=== PATIENT | female | born 1935 | race Caucasian/White ===

== ENCOUNTER 2017-09-16 14:45 | Emergency (ER) | payer MEDICARE, OTHER ==
[~2017-09-16 14:45] MED LIST: ALPR0.25 PO; CART180C4 PO; COQ1100C PO; COUM5TAB PO; DIGO0.25 PO; HYDR25TA35 PO; METO100T9 PO; MEVA40TA6 PO; ROBA500T PO; SPIR25TA PO; WARF2.5T40 PO
[2017-09-16 14:47] VITALS: BP 140/81; PULSE 82; RESP 18; TEMP 97.5; O2SAT 97
[2017-09-16] MEDS ORDERED: KETOROLAC TROMETHAMINE 30 MG/ML (IVP) VIAL IV PUSH ONE (15:30)
[2017-09-16] MEDS ORDERED: ORPHENADRINE INJ 60 MG/2 ML AMP IV ONE (15:30)
[2017-09-16] MEDS ORDERED: SODIUM CHLORIDE 0.9% FLUSH 10 ML FLUSH IVF PRN (15:30)
[2017-09-16 15:41] VITALS: O2SAT 99
[2017-09-16 15:53] LABS: AUTOMATED NEUTROPHIL # 13.2 TH/MM3 (1.8-7.7); BASOPHIL % 0.1 % (0.0-2.0); EOSINOPHIL % 0.2 % (0.0-4.0); HEMOGLOBIN 15.4 GM/DL (11.6-15.3); LYMPHOCYTE # 2.6 TH/MM3 (1.0-4.8); MEAN CELL VOLUME 84.8 FL (80.0-100.0); MEAN CORPUSCULAR HEMOGLOBIN 28.4 PG (27.0-34.0); MEAN CORPUSCULAR HGB CONC 33.5 % (32.0-36.0); MEAN PLATELET VOLUME 9.4 FL (7.0-11.0); MONO % 8.9 % (0.0-8.0); MONOCYTE # 1.6 TH/MM3 (0-0.9); NEUT % 75.8 % (16.0-70.0); PLATELET COUNT 301 TH/MM3 (150-450); RED BLOOD COUNT 5.43 MIL/MM3 (4.00-5.30); RED CELL DISTRIBUTION WIDTH 13.6 % (11.6-17.2); WHITE BLOOD COUNT 17.5 TH/MM3 (4.0-11.0)
--- NOTE | 2017-09-16 16:13 | PD ---
HPI Chief Complaint: General Weakness Time Seen by Provider: 15:01 Travel History International Travel<30 days: No Contact w/Intl Traveler<30days: No Traveled to known affect area: No History of Present Illness HPI Patient is an 82-year-old female presenting to the emergency department for evaluation of neck, shoulder and arm pain. Patient states this is been ongoing for 1 week. She denies any injury or trauma. Pain radiates down the back of her shoulder blade to her arm. Daughter has been applying [place] balm with no relief, she is also taken Tylenol, hydrocodone and when that didn't help she called her primary doctor who told her to take tramadol which she has been taking for the last 24-36 hours with some relief. Additionally patient reports nausea, fatigue, unsteady gait, decreased appetite and weakness for the last 2- 3 days. They deny any fevers, chills, vomiting, diarrhea, abdominal pain, chest pain, shortness of breath. PFSH Past Medical History Hx Anticoagulant Therapy: Yes (COUMADIN) Arthritis: Yes Asthma: No Atrial Fibrillation: Yes Autoimmune Disease: No Blood Disorders: No Anxiety: No Depression: No Heart Rhythm Problems: No Cancer: No Cardiovascular Problems: Yes (AFIB) High Cholesterol: No Chemotherapy: No Chest Pain: Yes Congestive Heart Failure: No COPD: No Cerebrovascular Accident: No Diabetes: No Diminished Hearing: No Endocrine: No Gastrointestinal Disorders: Yes GERD: No Glaucoma: No Genitourinary: Yes Headaches: No Hepatitis: No Hiatal Hernia: No Hypertension: Yes Immune Disorder: No Implanted Vascular Access Dvce: No Kidney Stones: No Musculoskeletal: Yes Neurologic: Yes Psychiatric: No Reproductive: No Respiratory: Yes Immunizations Current: Yes Migraines: No Myocardial Infarction: No Radiation Therapy: No Renal Failure: No Seizures: No Sickle Cell Disease: No Sleep Apnea: No Thyroid Disease: No Ulcer: No Menopausal: Yes Tubal Ligation: Yes Past Surgical History Abdominal Surgery: No AICD: No Appendectomy: No Arteriovenous Shunt: No Cardiac Surgery: Yes (CARDIAC ABLATION) Cholecystectomy: No Ear Surgery: No Endocrine Surgery: No Eye Surgery: Yes (CATARACTS REMOVED) Genitourinary Surgery: Yes (BLADDER PROLAPS) Gynecologic Surgery: Yes Hysterectomy: Yes Insulin Pump: No Joint Replacement: No Neurologic Surgery: No Oral Surgery: No Pacemaker: No Thoracic Surgery: No Other Surgery: Yes Social History Alcohol Use: No Tobacco Use: No Substance Use: No Allergies-Medications (Allergen,Severity, Reaction): Coded Allergies: codeine (Unverified Allergy, Severe, FELT LOUSY, 09/16/17) doxycycline (Unverified Allergy, Severe, VAGINAL INFECTION, 09/16/17) lactose (Unverified Allergy, Severe, GAS/FLATUS, 09/16/17) meperidine (Unverified Allergy, Severe, Lethargy, 09/16/17) minocycline (Unverified Allergy, Severe, VAGINAL INFECTION, 09/16/17) penicillin G (Unverified Allergy, Severe, UNKNOWN, 09/16/17) tigecycline (Unverified Allergy, Severe, VAGINAL INFECTION, 09/16/17) promethazine (Unverified Allergy, Mild, HALLUCINATIONS/TONGUE SWELLS, ) Reported Meds & Prescriptions Reported Meds & Active Scripts Active Lidoderm (Lidocaine) 5 % Adh..patch 1 Patch TOPICAL DAILY PRN Flexeril (Cyclobenzaprine HCl) 5 Mg Tab 5 Mg PO TID PRN Cipro (Ciprofloxacin HCl) 250 Mg Tab 250 Mg PO BID 3 Days Reported Asi19-Zoimmhv E (Coenzyme X06-Etseqqv E) 200 MG-20 Unit Cap Tramadol (Tramadol HCl) 50 Mg Tab 50 Mg PO Q6H PRN Pantoprazole (Pantoprazole Sodium) 40 Mg Tab 40 Mg PO TIDAC Duloxetine DR (Duloxetine HCl) 30 Mg Capdr 30 Mg PO DAILY Alprazolam 0.25 Mg Tab 0.25 Mg PO HS PRN Lovastatin 10 Mg Tab 10 Mg PO DAILY Digoxin 0.25 Mg Tab 0.25 Mg PO DAILY Warfarin 2.5 Mg Tab 2.5 Mg PO DAILY Warfarin 5 Mg Tab 5 Mg PO FRIDAY Spironolactone 25 Mg Tab 25 Mg PO DAILY Hydralazine (Hydralazine HCl) 100 Mg Tab 25 Mg PO BID Take with meals Metoprolol Succinate ER 24 HR (Metoprolol Succinate) 50 Mg Tab 50 Mg PO BID Review of Systems Except as stated in HPI: all other systems reviewed are Neg General / Constitutional: Positive: Other (FATIGUE), No: Fever, Chills HENT: No: Headaches, Lightheadedness Cardiovascular: No: Chest Pain or Discomfort Respiratory: No: Shortness of Breath Gastrointestinal: Positive: Nausea, Loss of Appetite, No: Vomiting, Diarrhea, Abdominal Pain Genitourinary: No: Dysuria Musculoskeletal: Positive: Myalgias, Cramping, Pain Neurologic: No: Weakness, Dizziness, Syncope, Focal Abnormalities Physical Exam Narrative GENERAL: Well-developed, well-nourished, alert elderly female. Resting comfortably in no acute distress. SKIN: Warm and dry. HEAD: Atraumatic. Normocephalic. EYES: Pupils equal and round. No scleral icterus. No injection or drainage. ENT: No nasal bleeding or discharge. Mucous membranes pink and moist. NECK: Trachea midline. No JVD. CARDIOVASCULAR: Irregularly irregular RESPIRATORY: No accessory muscle use. Clear to auscultation. Breath sounds equal bilaterally. GASTROINTESTINAL: Abdomen soft, non-tender, nondistended. Hepatic and splenic margins not palpable. + Bowel sounds, no rebound, no guarding MUSCULOSKELETAL: Extremities without clubbing, cyanosis, or edema. No obvious deformities. Tenderness to palpation in left neck musculature, no spinal tenderness or step-off noted. Full range of motion in all 4 extremities. NEUROLOGICAL: Awake and alert. No obvious cranial nerve deficits. Motor grossly within normal limits. Five out of 5 muscle strength in the arms and legs. Normal speech. PSYCHIATRIC: Appropriate mood and affect; insight and judgment normal. Data Data Last Documented VS Vital Signs Date Time Temp Pulse Resp B/P (MAP) Pulse Ox O2 Delivery O2 Flow Rate FiO2 09/16/17 15:41 99 Room Air 09/16/17 14:47 97.5 82 18 Orders Orders Electrocardiogram (09/16/17 15:29) Complete Blood Count With Diff (09/16/17 15:29) Comprehensive Metabolic Panel (09/16/17 15:29) Magnesium (Mg) (09/16/17 15:29) Ckmb (Isoenzyme) Profile (09/16/17 15:29) Troponin I (09/16/17 15:29) Urinalysis - C+S If Indicated (09/16/17 15:29) Ecg Monitoring (09/16/17 15:29) Iv Access Insert/Monitor (09/16/17 15:29) Oximetry (09/16/17 15:29) Sodium Chloride 0.9% Flush (Ns Flush) (09/16/17 15:30) Creatine Kinase (Cpk) (09/16/17 15:29) Orphenadrine Inj (Norflex Inj) (09/16/17 15:30) Ketorolac Inj (Toradol Inj) (09/16/17 15:30) Chest, Single Ap (09/16/17 ) Sodium Chlor 0.9% 1000 Ml Inj (Ns 1000 M (09/16/17 16:30) Urine Culture (09/16/17 17:00) Ciprofloxacin 400 Mg Premix (Cipro 400 M (09/16/17 18:15) Ed Discharge Order (09/16/17 18:27) Labs Laboratory Tests Test 09/16/17 15:35 09/16/17 17:00 White Blood Count 17.5 TH/MM3 Red Blood Count 5.43 MIL/MM3 Hemoglobin 15.4 GM/DL Hematocrit 46.0 % Mean Corpuscular Volume 84.8 FL Mean Corpuscular Hemoglobin 28.4 PG Mean Corpuscular Hemoglobin Concent 33.5 % Red Cell Distribution Width 13.6 % Platelet Count 301 TH/MM3 Mean Platelet Volume 9.4 FL Neutrophils (%) (Auto) 75.8 % Lymphocytes (%) (Auto) 15.0 % Monocytes (%) (Auto) 8.9 % Eosinophils (%) (Auto) 0.2 % Basophils (%) (Auto) 0.1 % Neutrophils # (Auto) 13.2 TH/MM3 Lymphocytes # (Auto) 2.6 TH/MM3 Monocytes # (Auto) 1.6 TH/MM3 Eosinophils # (Auto) 0.0 TH/MM3 Basophils # (Auto) 0.0 TH/MM3 CBC Comment DIFF FINAL Differential Comment Blood Urea Nitrogen 31 MG/DL Creatinine 1.09 MG/DL Random Glucose 114 MG/DL Total Protein 7.8 GM/DL Albumin 4.1 GM/DL Calcium Level 9.5 MG/DL Magnesium Level 2.0 MG/DL Alkaline Phosphatase 60 U/L Aspartate Amino Transf (AST/SGOT) 18 U/L Alanine Aminotransferase (ALT/SGPT) 24 U/L Total Bilirubin 0.5 MG/DL Sodium Level 131 MEQ/L Potassium Level 4.9 MEQ/L Chloride Level 93 MEQ/L Carbon Dioxide Level 27.0 MEQ/L Anion Gap 11 MEQ/L Estimat Glomerular Filtration Rate 48 ML/MIN Total Creatine Kinase 32 U/L Troponin I LESS THAN 0.02 NG/ML Urine Color YELLOW Urine Turbidity HAZY Urine pH 5.5 Urine Specific [place] 1.017 Urine Protein 30 mg/dL Urine Glucose (UA) NEG mg/dL Urine Ketones NEG mg/dL Urine Occult Blood TRACE Urine Nitrite NEG Urine Bilirubin NEG Urine Urobilinogen 2.0 MG/DL Urine Leukocyte Esterase LARGE Urine RBC 40 /hpf Urine WBC 107 /hpf Urine WBC Clumps RARE Urine Squamous Epithelial Cells <1 /hpf Urine Bacteria MANY /hpf Urine Hyaline Casts 1 /lpf Urine Mucus FEW /lpf Microscopic Urinalysis Comment CULTURE INDICATED MDM Medical Decision Making Medical Screen Exam Complete: Yes Emergency Medical Condition: Yes Interpretation(s) Vital Signs Date Time Temp Pulse Resp B/P (MAP) Pulse Ox O2 Delivery O2 Flow Rate FiO2 09/16/17 15:41 99 Room Air 09/16/17 14:47 97.5 82 18 140/81 (100) 97 Differential Diagnosis Muscle strain versus muscle spasm versus tendinitis versus gastritis versus medication side effect versus other Narrative Course Patient presented with multiple complaints including left neck and shoulder pain , nausea with no vomiting, fatigue and weakness. It appears symptoms could be related to medication side effects, additionally her pain is causing her to not sleep well at night which has been making her feel fatigued. She is also taking narcotic pain medications which could be decreasing her appetite which will increase her weakness. Patient's vital signs are stable, initial EKG shows atrial fibrillation with a rate of 72. Patient has a known history of this. Labs and imaging were ordered and pending. CBC with white count of 17.5 with left shift Chemistry the BUN/creatinine 31/1.09, sodium 131. Patient was given 1 L of IV fluids. Urinalysis is consistent with a urinary tract infection. Cipro 400 mg IV 1 dose ordered. Patient was reassessed, she reports resolution of her pain. Patient appears well. Plan of care discussed with my attending physician. Discussed findings with patient and daughter, she'll be discharged home with a prescription for Cipro as well as a low dose of a muscle relaxer. She was encouraged to take acetaminophen as needed and as directed for pain. She was encouraged to follow- up with her primary doctor return to emergency department for any new or worsening symptoms. Additionally she was encouraged to increase fluid intake. They verbalized understanding of instructions. Patient is stable for discharge. Diagnosis Primary Impression: Pyelonephritis Additional Impressions: Muscle strain Muscle spasm Referrals: John Fernandez MD 2 days TO HAVE INR (COUMADIN LEVEL) CHECKED Patient Instructions: General Instructions, Muscle Spasm (ED), Muscle Strain ( GEN), Urinary Tract Infection in Women (DC) Additional Instructions: Follow-up with her primary doctor in 2 days to have your INR checked Complete full course of antibiotics as prescribed Increase fluid intake Take medications as directed Return to emergency department for any new or worsening symptoms Med/Other Pt SpecificInfo: Prescription(s) given Scripts Lidocaine (Lidoderm) 5 % Adh..patch 1 PATCH TOPICAL DAILY Y for PAIN SCALE 1 TO 10, #10 Prov: Caridad Holland 09/16/17 Cyclobenzaprine (Flexeril) 5 Mg Tab 5 MG PO TID Y for MUSCLE SPASM, #21 TAB 0 Refills Prov: Caridad Holland 09/16/17 Ciprofloxacin (Cipro) 250 Mg Tab 250 MG PO BID for Infection for 3 Days, #6 TAB 0 Refills Prov: Caridad Holland 09/16/17 Disposition: 01 DISCHARGE HOME Condition: Stable Caridad Holland Sep 16, 2017 16:13
[2017-09-16 16:26] LABS: ALBUMIN 4.1 GM/DL (3.4-5.0); AST (GOT) 18 U/L (15-37); BLOOD UREA NITROGEN 31 MG/DL (7-18); CALCIUM 9.5 MG/DL (8.5-10.1); CHLORIDE 93 MEQ/L (98-107); CREATININE 1.09 MG/DL (0.50-1.00); GLOMERULAR FILTRATION RATE 48 ML/MIN (>89); GLUCOSE,RANDOM 114 MG/DL (74-106); SODIUM (NA) 131 MEQ/L (136-145)
[2017-09-16 16:27] LABS: ALT (GPT) 24 U/L (10-53)
[2017-09-16 16:30] LABS: ALKALINE PHOSPHATASE 60 U/L (45-117); TOTAL BILIRUBIN ADULT 0.5 MG/DL (0.2-1.0); TOTAL PROTEIN 7.8 GM/DL (6.4-8.2); TROPONIN I LESS THAN 0.02 NG/ML (0.02-0.05)
[2017-09-16] MEDS ORDERED: PANT40TA3 PO (16:30)
[2017-09-16] MEDS ORDERED: HYDR-3801 PO (16:30)
[2017-09-16] MEDS ORDERED: WARF-23 PO (16:30)
[2017-09-16] MEDS ORDERED: COEN1CAP17 (16:30)
[2017-09-16] MEDS ORDERED: TRAM50TA PO (16:30)
[2017-09-16] MEDS ORDERED: WARF-18 PO (16:30)
[2017-09-16] MEDS ORDERED: DIGO0.25 PO (16:30)
[2017-09-16] MEDS ORDERED: ALPR0.25 PO (16:30)
[2017-09-16] MEDS ORDERED: DULO1CAP2 PO (16:30)
[2017-09-16] MEDS ORDERED: METO1TAB9 PO (16:30)
[2017-09-16] MEDS ORDERED: LOVA10TA PO (16:30)
[2017-09-16] MEDS ORDERED: SODIUM CHLOR 0.9% 1000 ML INJ 1,000 ML IV ONE (16:30)
[2017-09-16] MEDS ORDERED: SPIR25TA PO (16:30)
--- NOTE | 2017-09-16 16:33 | RADRPT ---
EXAM DATE/TIME: 09/16/2017 16:27 [facility] COMPARISON: RIBS RIGHT(W PA CXR MIN 3VWS), May 29, 2016, 16:55. INDICATIONS : Chest and arm pain, general weakness. MEDICAL HISTORY : A-fib. SURGICAL HISTORY : None. ENCOUNTER: Initial ACUITY: 3 days PAIN SCORE: 2/10 LOCATION: Bilateral chest FINDINGS: A single view of the chest demonstrates the lungs to be symmetrically aerated without new focal pleur al or opacities. The cardiomediastinal contours are unremarkable. Osseous structures are intact. CONCLUSION: 1. No acute abnormality or significant interval change. Shukri Brown MD on September 16, 2017 at 16:30 Board Certified Radiologist. This report was verified electronically.
[2017-09-16 17:42] LABS: BACTERIA, URINE MANY /hpf; BILIRUBIN, URINE NEG (NEG); BLOOD, URINE TRACE (NEG); GLUCOSE,URINE NEG (NEG); HYALINE CAST, URINE 1 /lpf (RARE); KETONE, URINE NEG (NEG); MUCUS URINE FEW /lpf (OCC); NITRITE,URINE NEG (NEG); PH, URINE 5.5 (5.0-8.5); SQUAMOUS EPITHELIAL CELL URINE <1 /hpf (0-5); URINE COLOR YELLOW (YELLW/STRAW); URINE LEUKOCYTE ESTERASE LARGE (NEG); WHITE BLOOD CELL CLUMPS RARE
[2017-09-16] MEDS ORDERED: CIPROFLOXACIN 400 MG PREMIX 200 ML IV ONE (18:15)
[2017-09-16] MEDS ORDERED: CYCL5TAB PO (18:27)
[2017-09-16] MEDS ORDERED: CIPR250T52 PO (18:27)
[2017-09-16] MEDS ORDERED: LIDO1ADH4 TOPICAL (18:27)
[2017-09-16 18:32] VITALS: BP 164/74; PULSE 69; RESP 16; O2SAT 98
--- NOTE | 2017-09-16 20:55 | EKG ---
Date Performed: 09/16/2017 Time Performed: 15:30:50 PTAGE: 82 years EKG: ATRIAL FIBRILLATION ABNORMAL RHYTHM ECG No significant change from prior electrocardiogram. PREVIOUS TRACING : 05/29/2016 16.28 DOCTOR: Craig Novak Interpretating Date/Time 09/16/2017 20:53:30
== END 2017-09-16 19:50 | disposition home or self-care (01) ==
LOC: NEPE 14:45
DX: N12 Tubulo-interstitial nephritis, not specified as acute or chronic (principal); B95.2 Enterococcus as the cause of diseases classified elsewhere; M62.838 Other muscle spasm; I48.91 Unspecified atrial fibrillation; I10 Essential (primary) hypertension; Z79.01 Long term (current) use of anticoagulants
CPT/HCPCS: 71010; 80053; 81001; 82550; 83735; 84484; 85025; 87077; 87086; 87186; 93005; 96361; 96374; 96375; 99285; J0744; J1885; J2360; J7030

== ENCOUNTER 2017-10-23 09:34 | Inpatient (IN) | payer MEDICARE, OTHER ==
[2017-10-23] VITALS (10 sets, daily range): BP systolic 118–157; BP diastolic 59–93; PULSE 85–130; RESP 16–22; TEMP 98.1–98.5; O2SAT 95–99
[~2017-10-23] VITALS: Ht 165.1 cm; Wt 61.5 kg
[~2017-10-23 09:34] MED LIST changes: -CART180C4 PO; +CIPR250T52 PO; +COEN1CAP17; -COQ1100C PO; -COUM5TAB PO; +CYCL5TAB PO; +DULO1CAP2 PO; +HYDR-3801 PO; -HYDR25TA35 PO; +LIDO1ADH4 TOPICAL; +LOVA10TA PO; -METO100T9 PO; +METO1TAB9 PO; -MEVA40TA6 PO; +PANT40TA3 PO; -ROBA500T PO; +TRAM50TA PO; +WARF-18 PO; +WARF-23 PO; -WARF2.5T40 PO
[2017-10-23] MEDS ORDERED: SODIUM CHLORIDE 0.9% FLUSH 10 ML FLUSH IVF PRN (10:15)
--- NOTE | 2017-10-23 10:25 | PD ---
HPI Chief Complaint: Syncope/Near-Syncope Time Seen by Provider: 09:56 Travel History International Travel<30 days: No Contact w/Intl Traveler<30days: No Traveled to known affect area: No History of Present Illness HPI 82-year-old female, with history of atrial fibrillation, presents to the emergency department with complaint of a few syncopal episodes this morning. Takes Coumadin. At 3 AM she woke up yelling out to her daughter when she was on the floor. Reports waking up to get Tylenol because she had a headache. Denies chest pain, shortness of breath. Reports feeling heart palpitations on and off. Radiographer Angiogram discontinued Digoxin two weeks ago. Denies fever, vomiting. Reports having sneezing, coughing, nasal congestion that started yesterday. She did take some NyQuil last night for these symptoms. Does not know if she hit her head. Complaining of left shoulder pain, left lateral neck pain, right hip pain, right knee pain. Denies back pain. Was able to ambulate with assistance after the fall. Radiographer Angiogram is Dr. Hicks. PCP Dr. Fernandez. Allergies as listed on the chart. History of atrial fibrillation, hypertension , hypercholesterolemia. Does not taken any medications or tried any treatments to alleviate her symptoms. Has no other medical complaints. No other modifying factors or associated signs and symptoms. PFSH Past Medical History Hx Anticoagulant Therapy: Yes (COUMADIN) Arthritis: Yes Asthma: No Atrial Fibrillation: Yes Autoimmune Disease: No Blood Disorders: No Anxiety: No Depression: No Heart Rhythm Problems: No Cancer: No Cardiovascular Problems: Yes High Cholesterol: No Chemotherapy: No Chest Pain: Yes Congestive Heart Failure: No COPD: No Cerebrovascular Accident: No Diabetes: No Diminished Hearing: No Endocrine: No Gastrointestinal Disorders: Yes GERD: Yes Glaucoma: No Genitourinary: Yes Headaches: No Hepatitis: No Hiatal Hernia: No Hypertension: Yes Immune Disorder: No Implanted Vascular Access Dvce: No Kidney Stones: No Musculoskeletal: Yes Neurologic: Yes Psychiatric: No Reproductive: No Respiratory: Yes Immunizations Current: Yes Migraines: No Myocardial Infarction: No Radiation Therapy: No Renal Failure: No Seizures: No Sickle Cell Disease: No Sleep Apnea: No Thyroid Disease: No Ulcer: No Influenza Vaccination: Yes ?: Not Menopausal: Yes Tubal Ligation: Yes Past Surgical History Abdominal Surgery: No AICD: No Appendectomy: No Arteriovenous Shunt: No Cardiac Surgery: Yes (CARDIAC ABLATION) Cholecystectomy: No Ear Surgery: No Endocrine Surgery: No Eye Surgery: Yes (CATARACTS REMOVED) Genitourinary Surgery: Yes (BLADDER PROLAPSe) Gynecologic Surgery: Yes Hysterectomy: Yes Insulin Pump: No Joint Replacement: No Neurologic Surgery: No Oral Surgery: No Pacemaker: No Thoracic Surgery: No Other Surgery: Yes Social History Alcohol Use: No Tobacco Use: No Substance Use: No Allergies-Medications (Allergen,Severity, Reaction): Coded Allergies: codeine (Unverified Allergy, Severe, FELT LOUSY, 10/23/17) doxycycline (Unverified Allergy, Severe, VAGINAL INFECTION, 10/23/17) lactose (Unverified Allergy, Severe, GAS/FLATUS, 10/23/17) meperidine (Unverified Allergy, Severe, Lethargy, 10/23/17) minocycline (Unverified Allergy, Severe, VAGINAL INFECTION, 10/23/17) penicillin G (Unverified Allergy, Severe, UNKNOWN, 10/23/17) tigecycline (Unverified Allergy, Severe, VAGINAL INFECTION, 10/23/17) promethazine (Unverified Allergy, Mild, HALLUCINATIONS/TONGUE SWELLS, 10/23) Reported Meds & Prescriptions Reported Meds & Active Scripts Active Reported [id number] E (Coenzyme F68-Tcrkhvy E) 200 MG-[address] (Duloxetine HCl) 30 Mg Capdr 30 Mg PO DAILY Alprazolam 0.25 Mg Tab 0.25 Mg PO HS PRN Lovastatin 10 Mg Tab 10 Mg PO DAILY Warfarin 2.5 Mg Tab 2.5 Mg PO Warfarin 5 Mg Tab 5 Mg PO FRIDAY AND FRIDAY Spironolactone 25 Mg Tab 25 Mg PO DAILY Hydralazine (Hydralazine HCl) 100 Mg Tab 25 Mg PO BID Take with meals Metoprolol Succinate ER 24 HR (Metoprolol Succinate) 50 Mg Tab 50 Mg PO BID Review of Systems Except as stated in HPI: all other systems reviewed are Neg Physical Exam Narrative GENERAL: Well-nourished, well-developed elderly female patient, in no acute distress SKIN: Warm and dry. HEAD: Atraumatic. Normocephalic. No facial or scalp abrasions or lacerations noted. No facial droop noted. Tongue is midline. EYES: Pupils equal and round at 3 mm with brisk reaction. No scleral icterus. No injection or drainage. No raccoon eyes. No orbital tenderness on palpation bilaterally. ENT: Mucosa pink and moist. No erythema or exudates. No uvular edema. No uvular , palatal, or tonsillar deviation. Airway patent. Nares without nasal blood, purulent drainage or septal hematoma. No rhinorrhea. EARS: Bilateral pinnae and external canals appear within normal limits. Bilateral tympanic membranes without erythema, dullness, hemotympanum or perforation. No otorrhea. No meade signs. NECK: Moving freely. Trachea midline. No lymphadenopathy. Active rotation of the neck greater than 45 left and right. No midline point tenderness on palpation of the cervical spine. Reproducible tenderness to the left lateral musculature of the neck. No obvious deformities. CHEST: No retractions or use of accessory muscles. CARDIOVASCULAR: Irregular rate and rhythm. No murmur appreciated. RESPIRATORY: No accessory muscle use. Clear to auscultation. Breath sounds equal bilaterally. GASTROINTESTINAL: Abdomen soft, non-tender, nondistended. Hepatic and splenic margins not palpable. Bowel sounds are active 4 quadrants. MUSCULOSKELETAL: Left shoulder with full range of motion without erythema, edema , ecchymosis; joint stable. Right knee with tenderness on palpation to the patellar aspect; without erythema, edema, ecchymosis; full range of motion in flexion and 90. Right hip with tenderness on abduction and palpation; no leg length discrepancy. No obvious deformities. No clubbing. No cyanosis. No edema. BACK: No Point tenderness on palpation of the lumbar or thoracic spine. No obvious deformities. Patient sitting up in bed at 90. NEUROLOGICAL: Awake and alert. Oriented 3. No obvious cranial nerve deficits. Motor grossly within normal limits. Normal speech. No midline drift. No ataxia. No upper or lower extremity drift. Moves all extremities. 5/5 strength to all extremities. Sensory intact. PSYCHIATRIC: Appropriate mood and affect; insight and judgment normal. Data Data Last Documented VS Vital Signs Date Time Temp Pulse Resp B/P (MAP) Pulse Ox O2 Delivery O2 Flow Rate FiO2 10/23/17 12:00 110 18 157/80 (105) 99 Room Air 10/23/17 09:35 98.1 Orders Orders Electrocardiogram (10/23/17 10:09) Basic Metabolic Panel (Bmp) (10/23/17 10:09) Complete Blood Count With Diff (10/23/17 10:09) Magnesium (Mg) (10/23/17 10:09) Prothrombin Time / Inr (Pt) (10/23/17 10:09) Act Partial Throm Time (Ptt) (10/23/17 10:09) Troponin I (10/23/17 10:09) Chest, Single Ap (10/23/17 10:09) Ecg Monitoring (10/23/17 10:09) Iv Access Insert/Monitor (10/23/17 10:09) Oximetry (10/23/17 10:09) Sodium Chloride 0.9% Flush (Ns Flush) (10/23/17 10:15) Ct Brain W/O Iv Contrast(Rout) (10/23/17 ) Ct Cerv Spine W/O Contrast (10/23/17 ) Knee, Complete (4vws) (10/23/17 10:09) Hip, Uni(Ap&Lat) W Ap Pelvis (10/23/17 10:09) Influenzae A/B Antigen (10/23/17 10:09) Metoprolol Succinate Er (Toprol Xl) (10/23/17 10:45) Urinalysis - C+S If Indicated (10/23/17 11:50) Diet Heart Healthy (10/23/17 Lunch) Methocarbamol (Robaxin) (10/23/17 12:15) Urine Culture (10/23/17 11:40) Labs Laboratory Tests Test 10/23/17 10:15 10/23/17 11:40 White Blood Count 11.8 TH/MM3 Red Blood Count 5.26 MIL/MM3 Hemoglobin 15.3 GM/DL Hematocrit 45.6 % Mean Corpuscular Volume 86.7 FL Mean Corpuscular Hemoglobin 29.2 PG Mean Corpuscular Hemoglobin Concent 33.6 % Red Cell Distribution Width 14.8 % Platelet Count 193 TH/MM3 Mean Platelet Volume 9.6 FL Neutrophils (%) (Auto) 73.3 % Lymphocytes (%) (Auto) 12.4 % Monocytes (%) (Auto) 13.8 % Eosinophils (%) (Auto) 0.2 % Basophils (%) (Auto) 0.3 % Neutrophils # (Auto) 8.6 TH/MM3 Lymphocytes # (Auto) 1.5 TH/MM3 Monocytes # (Auto) 1.6 TH/MM3 Eosinophils # (Auto) 0.0 TH/MM3 Basophils # (Auto) 0.0 TH/MM3 CBC Comment DIFF FINAL Differential Comment Prothrombin Time 19.1 SEC Prothromb Time International Ratio 1.9 RATIO Activated Partial Thromboplast Time 28.8 SEC Blood Urea Nitrogen 24 MG/DL Creatinine 0.91 MG/DL Random Glucose 93 MG/DL Calcium Level 9.0 MG/DL Magnesium Level 2.2 MG/DL Sodium Level 133 MEQ/L Potassium Level 4.3 MEQ/L Chloride Level 100 MEQ/L Carbon Dioxide Level 28.0 MEQ/L Anion Gap 5 MEQ/L Estimat Glomerular Filtration Rate 59 ML/MIN Troponin I LESS THAN 0.02 NG/ML Urine Color YELLOW Urine Turbidity HAZY Urine pH 7.0 Urine Specific [place] 1.011 Urine Protein NEG mg/dL Urine Glucose (UA) NEG mg/dL Urine Ketones NEG mg/dL Urine Occult Blood NEG Urine Nitrite NEG Urine Bilirubin NEG Urine Urobilinogen LESS THAN 2.0 MG/DL Urine Leukocyte Esterase LARGE Urine RBC 1 /hpf Urine WBC 56 /hpf Urine Squamous Epithelial Cells 12 /hpf Urine Bacteria RARE /hpf Urine Mucus FEW /lpf Microscopic Urinalysis Comment CULTURE INDICATED MDM Medical Decision Making Medical Screen Exam Complete: Yes Emergency Medical Condition: Yes Medical Record Reviewed: Yes Differential Diagnosis Syncope, arrhythmia, electrolyte imbalance Narrative Course 82-year-old female with history of atrial fibrillation and is on warfarin presents with multiple episodes of syncope this morning. She was taken off digoxin [address] head, CT cervical spine, right hip with AP pelvis x-ray , right knee x-ray, CBC, BMP, coags, troponin, EKG, chest x-ray ordered. 1058: Influenza negative. CBC unremarkable. Coags unremarkable. INR 1.9. 1140: Sodium 133. Troponin less than 0.02. Chest x-ray, right hip x-ray, right knee x-ray, CT head, CT cervical spine concludes: Knee X-Ray 10/23/17 1009 Signed Impressions: Service Date/Time: September 10:37 - CONCLUSION: 1. No evidence of fracture. 2. Moderate severity medial compartment osteoarthritic findings. Rommel Bowser MD Hip and Pelvis X-Ray 10/23/17 1009 Signed Impressions: Service Date/Time: September 10:34 - CONCLUSION: No evidence of fracture. Rommel Bowser MD Chest X-Ray 10/23/17 1009 Signed Impressions: Service Date/Time: September 10:49 - CONCLUSION: No acute cardiopulmonary disease identified. Rommel Bowser MD Head CT 10/23/17 0000 Signed Impressions: Service Date/Time: September 10:46 - CONCLUSION: No acute intracranial findings. Rommel Bowser MD Cervical Spine CT 10/23/17 0000 Signed Impressions: Service Date/Time: September 10:48 - CONCLUSION: No evidence of fracture. Multilevel degenerative findings. Rommel Bowser MD Call out placed for patient admission. 1250: Dr. Paul spoke with YOUSIF Lau; report given for patient admission. Physician Communication Physician Communication YOUSIF Lau Diagnosis Primary Impression: Syncope and collapse Additional Impression: Atrial fibrillation Qualified Codes: I48.91 - Unspecified atrial fibrillation Admitting Information Admitting Physician Requests: Admit Felicitas Lewis Oct 23, 2017 10:25
[2017-10-23 10:43] LABS: AUTOMATED NEUTROPHIL # 8.6 TH/MM3 (1.8-7.7); BASOPHIL % 0.3 % (0.0-2.0); EOSINOPHIL % 0.2 % (0.0-4.0); HEMATOCRIT 45.6 % (35.0-46.0); HEMOGLOBIN 15.3 GM/DL (11.6-15.3); LYMPH % 12.4 % (9.0-44.0); LYMPHOCYTE # 1.5 TH/MM3 (1.0-4.8); MEAN CELL VOLUME 86.7 FL (80.0-100.0); MEAN CORPUSCULAR HEMOGLOBIN 29.2 PG (27.0-34.0); MEAN CORPUSCULAR HGB CONC 33.6 % (32.0-36.0); MEAN PLATELET VOLUME 9.6 FL (7.0-11.0); MONO % 13.8 % (0.0-8.0); MONOCYTE # 1.6 TH/MM3 (0-0.9); NEUT % 73.3 % (16.0-70.0); PLATELET COUNT 193 TH/MM3 (150-450); RED BLOOD COUNT 5.26 MIL/MM3 (4.00-5.30); RED CELL DISTRIBUTION WIDTH 14.8 % (11.6-17.2); WHITE BLOOD COUNT 11.8 TH/MM3 (4.0-11.0)
[2017-10-23] MEDS ORDERED: METOPROLOL SUCCINATE 50 MG EXTENDED RELEASE TAB PO ONE (10:45)
[2017-10-23 10:55] LABS: INTERNATIONAL NORMALIZED RATIO 1.9 RATIO; PROTHROMBIN TIME - PATIENT 19.1 SEC (9.8-11.6)
[2017-10-23 11:08] LABS: TROPONIN I LESS THAN 0.02 NG/ML (0.02-0.05)
--- NOTE | 2017-10-23 11:14 | RADRPT ---
EXAM DATE/TIME: 10/23/2017 10:49 [facility] COMPARISON: CHEST SINGLE AP, September 16, 2017, 16:27. INDICATIONS : Syncope. MEDICAL HISTORY : Hypertension. Arthritis. Gastroesophageal reflux disease. A-Fib. Vertigo. SURGICAL HISTORY : Hysterectomy. Tubal ligation. ENCOUNTER: Initial ACUITY: 1 day PAIN SCORE: 0/10 LOCATION: Bilateral chest FINDINGS: Single AP view of the chest. The lungs are clear. Cardiomediastinal silhouette within normal limits. No evidence of pleural effusion or pneumothorax. CONCLUSION: No acute cardiopulmonary disease identified. Rommel Bowser MD on October 23, 2017 at 11:11 Board Certified Radiologist. This report was verified electronically.
[2017-10-23 11:16] LABS: BLOOD UREA NITROGEN 24 MG/DL (7-18); CHLORIDE 100 MEQ/L (98-107); CREATININE 0.91 MG/DL (0.50-1.00); GLOMERULAR FILTRATION RATE 59 ML/MIN (>89); GLUCOSE,RANDOM 93 MG/DL (74-106); MAGNESIUM 2.2 MG/DL (1.5-2.5); SODIUM (NA) 133 MEQ/L (136-145)
--- NOTE | 2017-10-23 11:16 | RADRPT ---
EXAM DATE/TIME: 10/23/2017 10:46 [facility] COMPARISON: No previous studies available for comparison. INDICATIONS : Patient fell, near syncope RADIATION DOSE: 56.35 CTDIvol (mGy) MEDICAL HISTORY : Hypertension. Cardiovascular disease SURGICAL HISTORY : Hysterectomy. ENCOUNTER: Initial ACUITY: 2 days PAIN SCALE: 0/10 LOCATION: cranial TECHNIQUE: Multiple contiguous axial images were obtained of the head. Using automated exposure control and adj ustment of the mA and/or kV according to patient size, radiation dose was kept as low as reasonably a chievable to obtain optimal diagnostic quality images. DICOM format image data is available electro nically for review and comparison. FINDINGS: CEREBRUM: The ventricles are normal for age. No evidence of midline shift, mass lesion, hemorrhage or acute in farction. No extra-axial fluid collections are seen. Periventricular white matter hypodensity indica alex chronic small vessel ischemic change. POSTERIOR FOSSA: The cerebellum and brainstem are intact. The 4th ventricle is midline. The cerebellopontine angle i s unremarkable. EXTRACRANIAL: The visualized portion of the orbits is intact. SKULL: The calvaria is intact. No evidence of skull fracture. CONCLUSION: No acute intracranial findings. Rommel Bowsre MD on October 23, 2017 at 11:12 Board Certified Radiologist. This report was verified electronically.
--- NOTE | 2017-10-23 11:17 | RADRPT ---
EXAM DATE/TIME: 10/23/2017 10:37 [facility] COMPARISON: No previous studies available for comparison. INDICATIONS : Right knee pain after falling this morning. MEDICAL HISTORY : Hypertension. Arthritis. Gastroesophageal reflux disease. A-Fib. Vertigo. SURGICAL HISTORY : Hysterectomy. Tubal ligation. ENCOUNTER: Initial ACUITY: 1 day PAIN SCORE: 8/10 LOCATION: Right patella. FINDINGS: 5 views right knee. Moderate-sized medial compartment osteophytes. Moderate severity medial compartme nt narrowing. Prominent subchondral sclerosis of the medial tibial condyle. Bone alignment within nor mal limits. No evidence of fracture. No evidence of joint effusion. Quadriceps insertion enthesophyt e noted. CONCLUSION: 1. No evidence of fracture. 2. Moderate severity medial compartment osteoarthritic findings. Rommel Bowser MD on October 23, 2017 at 11:14 Board Certified Radiologist. This report was verified electronically.
--- NOTE | 2017-10-23 11:25 | RADRPT ---
EXAM DATE/TIME: 10/23/2017 10:34 [facility] COMPARISON: No previous studies available for comparison. INDICATIONS : Right hip pain after falling this morning. MEDICAL HISTORY : Hypertension. Arthritis. Gastroesophageal reflux disease. A-Fib. Vertigo. SURGICAL HISTORY : Hysterectomy. Tubal ligation. ENCOUNTER: Initial ACUITY: 1 day PAIN SCORE: LOCATION: Right posterior hip FINDINGS: 3 views of the right hip and pelvis. Bone alignment within normal limits. No evidence of fracture. M inimal osteophytes at the hips. No evidence of joint narrowing. CONCLUSION: No evidence of fracture. Rommel Bowser MD on October 23, 2017 at 11:20 Board Certified Radiologist. This report was verified electronically.
--- NOTE | 2017-10-23 11:34 | RADRPT ---
EXAM DATE/TIME: 10/23/2017 10:48 [facility] COMPARISON: No previous studies available for comparison. INDICATIONS : Patient fell, near syncope RADIATION DOSE: 23.01 CTDIvol (mGy) MEDICAL HISTORY : Hypertension. Cardiovascular disease SURGICAL HISTORY : Hysterectomy. ENCOUNTER: Initial ACUITY: 1 day PAIN SCALE: 9/10 LOCATION: body aches TECHNIQUE: Volumetric scanning of the cervical spine was performed. Multiplanar reconstructions in the sagittal, coronal and oblique axial planes were performed. Using automated exposure control and adjustment o f the mA and/or kV according to patient size, radiation dose was kept as low as reasonably achievable to obtain optimal diagnostic quality images. DICOM format image data is available electronically f or review and comparison. FINDINGS: VERTEBRAE: Normal vertebral body height. ALIGNMENT: 2 mm anterolisthesis C3 on C4. Alignment otherwise within normal limits. Diffusely heterogeneous thyroid noted. C2-C3: Left-sided facet arthrosis. No evidence of focal disc protrusion. Central canal normal diameter. Neur al foraminal diameters within normal limits. C3-C4: Prominent right-sided facet arthrosis. Mild right neural foraminal narrowing. Central canal diameter within normal limits. C4-C5: Prominent left-sided facet arthrosis. Mild left neural foraminal narrowing. Central canal diameter wi thin normal limits. C5-C6: Broad-based disc osteophyte complex and bilateral facet arthrosis. Moderate right neuroforaminal narr owing. Mild central canal narrowing. C6-C7: No evidence of focal disc protrusion. Central canal normal diameter. Neural foraminal diameters withi n normal limits. C7-T1: No evidence of focal disc protrusion. Central canal normal diameter. Neural foraminal diameters withi n normal limits. CONCLUSION: No evidence of fracture. Multilevel degenerative findings. Rommel Bowser MD on October 23, 2017 at 11:29 Board Certified Radiologist. This report was verified electronically.
[2017-10-23] MEDS ORDERED: METHOCARBAMOL 500 MG TAB PO ONE (12:15)
[2017-10-23 12:16] LABS: BACTERIA, URINE RARE /hpf; BILIRUBIN, URINE NEG (NEG); BLOOD, URINE NEG (NEG); GLUCOSE,URINE NEG (NEG); KETONE, URINE NEG (NEG); MUCUS URINE FEW /lpf (OCC); NITRITE,URINE NEG (NEG); SQUAMOUS EPITHELIAL CELL URINE 12 /hpf (0-5); URINE COLOR YELLOW (YELLW/STRAW); URINE LEUKOCYTE ESTERASE LARGE (NEG)
[2017-10-23] MEDS ORDERED: DILTIAZEM HCL 25 MG/5 ML VIAL IV PUSH ONE (13:00)
[2017-10-23] MEDS ORDERED: SODIUM CHLORIDE 0.9% FLUSH 10 ML FLUSH IV FLUSH PRN (13:00)
[2017-10-23] MEDS ORDERED: ONDANSETRON HCL 4 MG/2 ML VIAL IVP PRN (13:00)
[2017-10-23] MEDS ORDERED: BISACODYL 10 MG SUPP RECTAL PRN (13:00)
[2017-10-23] MEDS ORDERED: MAGNESIUM HYDROXIDE SUSP 30 ML CUP PO PRN (13:00)
[2017-10-23] MEDS ORDERED: SENNOSIDES 8.6 MG TAB PO PRN (13:00)
[2017-10-23] MEDS ORDERED: LACTULOSE SYRUP 20 GM/30 ML CUP PO PRN (13:00)
[2017-10-23] MEDS ORDERED: NALOXONE HCL 0.4 MG/ML AMP IV PUSH PRN (13:00)
[2017-10-23] MEDS ORDERED: DILTIAZEM INJ 125 MG in SODIUM CHLORIDE 0.9% INJ 100 ML IV PRN (13:00)
[2017-10-23] MEDS ORDERED: cefTRIAXone INJ 1,000 MG in SODIUM CHLORIDE 0.9% INJ 100 ML IV ONE (13:15)
--- NOTE | 2017-10-23 15:11 | HHI.HP ---
HPI [facility] Primary Care Physician John Fernandez MD Admission Diagnosis SYNCOPE, ATRIAL FIBRILLATION Diagnoses: Travel History International Travel<30 Days: No Contact w/Intl Traveler <30 Da: No Traveled to Known Affected Are: No History of Present Illness Patient is a pleasant 82-year-old female with past medical history of atrial fibrillation, hyperlipidemia, anxiety/depression, GERD, bladder prolapse presented to the emergency room with complaint of syncopal episode. Patient states that last night she took NyQuil for her runny nose and for insomnia. Around 3;30am she had a headache, she got up and decided to go to the kitchen to get 2 Tylenols. As she was putting the bottle away she felt like she was going down and found herself on the floor. She doesn't remember hitting her head however she remembers hitting her left shoulder, neck area, her right knee and her right hip. Daughter heard the noise and came to see her and found her on the floor. Per patient, daughter told her that she passed out twice while she was with her. She does admits to palpitations for the past 2 weeks. 2 weeks ago, she saw her environmental monitoring technician, Dr. Vernon, he told her to stop the digoxin. She states also that her primary care doctor adjusted her Coumadin dose as well and wonders if that has anything to do w the syncopal episode. During her syncopal episode she felt like "water". She denied any lightheadedness or dizziness. She denied any chest pain whatsoever or any shortness of breath. She admits to a dry cough once in a while associated w her runny nose however no fevers or chills. She denies any abdominal pain. She tells me that she is scheduled for a bladder prolapse pair sometime on November 12. Pt denies any runny nose or sore throat during my interview. Review of Systems Except as stated in HPI: all other systems reviewed are Neg Past Family Social History Past Medical History atrial fibrillation, hyperlipidemia, anxiety/depression, GERD, bladder prolapse Past Surgical History Hysterectomy, bladder prolapse repair, esophageal dilatation, tubal ligation, heart ablation Reported Medications Reported Meds & Active Scripts Active Reported [id number] E (Coenzyme B62-Rpwazxh E) 200 MG-[address] (Duloxetine HCl) 30 Mg Capdr 30 Mg PO DAILY Alprazolam 0.25 Mg Tab 0.25 Mg PO HS PRN Lovastatin 10 Mg Tab 10 Mg PO DAILY Warfarin 2.5 Mg Tab 2.5 Mg PO Warfarin 5 Mg Tab 5 Mg PO FRIDAY AND FRIDAY Spironolactone 25 Mg Tab 25 Mg PO DAILY Hydralazine (Hydralazine HCl) 100 Mg Tab 25 Mg PO BID Take with meals Metoprolol Succinate ER 24 HR (Metoprolol Succinate) 50 Mg Tab 50 Mg PO BID Allergies: Coded Allergies: codeine (Unverified Allergy, Severe, FELT LOUSY, 10/23/17) doxycycline (Unverified Allergy, Severe, VAGINAL INFECTION, 10/23/17) lactose (Unverified Allergy, Severe, GAS/FLATUS, 10/23/17) meperidine (Unverified Allergy, Severe, Lethargy, 10/23/17) minocycline (Unverified Allergy, Severe, VAGINAL INFECTION, 10/23/17) penicillin G (Unverified Allergy, Severe, UNKNOWN, 10/23/17) tigecycline (Unverified Allergy, Severe, VAGINAL INFECTION, 10/23/17) promethazine (Unverified Allergy, Mild, HALLUCINATIONS/TONGUE SWELLS, 10/23) Family History mother had CVA x5 father committed suicide in his 30's and she was 1 at the time Social History denies any smoking hx, drinks wine occasionally and denies any illegal drug use Physical Exam Vital Signs Vital Signs Date Time Temp Pulse Resp B/P (MAP) Pulse Ox O2 Delivery O2 Flow Rate FiO2 10/23/17 14:42 93 16 127/59 (81) 98 Room Air 10/23/17 14:20 17 99 10/23/17 13:53 120 128/81 10/23/17 13:30 130 17 134/93 (107) 98 Room Air 10/23/17 12:00 110 18 157/80 (105) 99 Room Air 10/23/17 09:35 98.1 101 16 118/77 (91) 98 Physical Exam GENERAL: pleasant, thin female, laying in bed comfortably. SKIN: No rashes. Cool and dry. HEAD: Atraumatic. Normocephalic. EYES: Pupils equal round and reactive. Extraocular motions intact. ENT: Nose without drainage. Throat without erythema, tonsillar hypertrophy or exudate. Uvula midline. Airway patent. NECK: Trachea midline. CARDIOVASCULAR: irregularly irregular w no obvious murmurs RESPIRATORY: Clear to auscultation. Breath sounds equal bilaterally. No wheezes GASTROINTESTINAL: Abdomen soft, non-tender, nondistended. No guarding. MUSCULOSKELETAL: Extremities with trace edema. good ROM at the hips and shoulders. She does have some discomfort w external rotation of the right hip but states it is tolerable. She is able to resist again gravity bilaterally 4/5 muscle strength in lower extremities. NEUROLOGICAL: Awake and alert. Cranial nerves II through XII intact. Normal speech. Laboratory Laboratory Tests Test 10/23/17 10:15 10/23/17 11:40 White Blood Count 11.8 Red Blood Count 5.26 Hemoglobin 15.3 Hematocrit 45.6 Mean Corpuscular Volume 86.7 Mean Corpuscular Hemoglobin 29.2 Mean Corpuscular Hemoglobin Concent 33.6 Red Cell Distribution Width 14.8 Platelet Count 193 Mean Platelet Volume 9.6 Neutrophils (%) (Auto) 73.3 Lymphocytes (%) (Auto) 12.4 Monocytes (%) (Auto) 13.8 Eosinophils (%) (Auto) 0.2 Basophils (%) (Auto) 0.3 Neutrophils # (Auto) 8.6 Lymphocytes # (Auto) 1.5 Monocytes # (Auto) 1.6 Eosinophils # (Auto) 0.0 Basophils # (Auto) 0.0 CBC Comment DIFF FINAL Differential Comment Prothrombin Time 19.1 Prothromb Time International Ratio 1.9 Activated Partial Thromboplast Time 28.8 Blood Urea Nitrogen 24 Creatinine 0.91 Random Glucose 93 Calcium Level 9.0 Magnesium Level 2.2 Sodium Level 133 Potassium Level 4.3 Chloride Level 100 Carbon Dioxide Level 28.0 Anion Gap 5 Estimat Glomerular Filtration Rate 59 Troponin I LESS THAN 0.02 Urine Color YELLOW Urine Turbidity HAZY Urine pH 7.0 Urine Specific [place] 1.011 Urine Protein NEG Urine Glucose (UA) NEG Urine Ketones NEG Urine Occult Blood NEG Urine Nitrite NEG Urine Bilirubin NEG Urine Urobilinogen LESS THAN 2.0 Urine Leukocyte Esterase LARGE Urine RBC 1 Urine WBC 56 Urine Squamous Epithelial Cells 12 Urine Bacteria RARE Urine Mucus FEW Microscopic Urinalysis Comment CULTURE INDICATED Date/Time Source Procedure Growth Status 10/23/17 10:15 Nasal Washing Influenza Types A,B Antigen (DORIS) - Final NEGATIVE FOR FLU A AND B ANTIGEN.... Complete 10/23/17 11:40 Urine Clean Catch Urine Culture Pending Received Result Diagram: 10/23/17 1015 10/23/17 1015 Imaging Last Impressions Knee X-Ray 10/23/17 1009 Signed Impressions: Service Date/Time: September 10:37 - CONCLUSION: 1. No evidence of fracture. 2. Moderate severity medial compartment osteoarthritic findings. Rommel Bowser MD Hip and Pelvis X-Ray 10/23/17 1009 Signed Impressions: Service Date/Time: September 10:34 - CONCLUSION: No evidence of fracture. Rommel Bowser MD Chest X-Ray 10/23/17 1009 Signed Impressions: Service Date/Time: September 10:49 - CONCLUSION: No acute cardiopulmonary disease identified. Rommel Bowser MD Head CT 10/23/17 0000 Signed Impressions: Service Date/Time: September 10:46 - CONCLUSION: No acute intracranial findings. Rommel Bowser MD Cervical Spine CT 10/23/17 0000 Signed Impressions: Service Date/Time: September 10:48 - CONCLUSION: No evidence of fracture. Multilevel degenerative findings. MD Gemma Finney VTE Risk Assessment Caprini VTE Risk Assessment: Mod/High Risk (score >= 2) Caprini Risk Assessment Model Point Value = 1 Point Value = 2 Point Value = 3 Point Value = 5 Age 41-60 Minor surgery BMI > 25 kg/m2 Swollen legs Varicose veins or History of unexplained or recurrent spontaneous Oral contraceptives or hormone replacement Sepsis (< 1 month) Serious lung disease, including pneumonia (< 1 month) Abnormal pulmonary function Acute myocardial infarction Congestive heart failure (< 1 month) History of inflammatory bowel disease Medical patient at bed rest Age 61-74 Arthroscopic surgery Major open surgery (> 45 min) Laparoscopic surgery (> 45 min) Malignancy Confined to bed (> 72 hours) Immobilizing plaster cast Central venous access Age >= 75 History of VTE Family history of VTE Factor V Leiden Prothrombin [id number] Lupus anticoagulant Anticardiolipin antibodies Elevated serum homocysteine Heparin-induced thrombocytopenia Other congenital or acquired thrombophilia Stroke (< 1 month) Elective arthroplasty Hip, pelvis, or leg fracture Acute spinal cord injury (< 1 month) Prophylaxis Regimen Total Risk Factor Score Risk Level Prophylaxis Regimen 0-1 Low Early ambulation 2 Moderate Order ONE of the following: *Sequential Compression Device (SCD) *Heparin 5000 units SQ BID 3-4 Higher Order ONE of the following medications: *Heparin 5000 units SQ TID *Enoxaparin/Lovenox 40 mg SQ daily (WT < 150 kg, CrCl > 30 mL/min) *Enoxaparin/Lovenox 30 mg SQ daily (WT < 150 kg, CrCl > 10-29 mL/min) *Enoxaparin/Lovenox 30 mg SQ BID (WT < 150 kg, CrCl > 30 mL/min) AND/OR *Sequential Compression Device (SCD) 5 or more Highest Order ONE of the following medications: *Heparin 5000 units SQ TID (Preferred with Epidurals) *Enoxaparin/Lovenox 40 mg SQ daily (WT < 150 kg, CrCl > 30 mL/min) *Enoxaparin/Lovenox 30 mg SQ daily (WT < 150 kg, CrCl > 10-29 mL/min) *Enoxaparin/Lovenox 30 mg SQ BID (WT < 150 kg, CrCl > 30 mL/min) AND *Sequential Compression Device (SCD) Assessment and Plan Assessment and Plan Atrial fibrillation with RVR: Patient's heart rate runs in the 110s to 130s. Currently on 10 mcg/hr of diltiazem. Pt also received a dose of cardizem bolus in ED and was started on metoprolol 50mg po BID. I have consulted pt's environmental monitoring technician, Dr. Cervantes. Pt tells me that she had an Echocardiogram 1 month ago in his office and was told everything was normal. Will hold off on this at this time. will place pt on TELE. Transfer to [facility] for close monitoring. Continue cardizem gtt for now and titrate down. continue pt's home coumadin regimen and consult pharmacy. INR today 1.9. Syncopal episode: x 3. Most likely from pt's atrial fib. hold off on ECHO as pt had one recently at her environmental monitoring technician's office. Check Carotid u/s. Monitor pt on TELE. check EEG. If abnormal, consult neurology. Abnormal U/A: urine concerning for UTI. Received dose of rocephin. urine cx pending. continue IV rocephin Other chronic med problems: hyperlipidemia, anxiety/depression, GERD, bladder prolapse: stable. resume home meds DVT proph: on coumadin. Code Status full Discussed Condition With ER physician, patient. Sabiha Lin MD Oct 23, 2017 15:11
--- NOTE | 2017-10-23 15:26 | PD ---
Data Data Last Documented VS Vital Signs Date Time Temp Pulse Resp B/P (MAP) Pulse Ox O2 Delivery O2 Flow Rate FiO2 10/23/17 12:00 110 18 157/80 (105) 99 Room Air 10/23/17 09:35 98.1 Orders Orders Electrocardiogram (10/23/17 10:09) Basic Metabolic Panel (Bmp) (10/23/17 10:09) Complete Blood Count With Diff (10/23/17 10:09) Magnesium (Mg) (10/23/17 10:09) Prothrombin Time / Inr (Pt) (10/23/17 10:09) Act Partial Throm Time (Ptt) (10/23/17 10:09) Troponin I (10/23/17 10:09) Chest, Single Ap (10/23/17 10:09) Ecg Monitoring (10/23/17 10:09) Iv Access Insert/Monitor (10/23/17 10:09) Oximetry (10/23/17 10:09) Sodium Chloride 0.9% Flush (Ns Flush) (10/23/17 10:15) Ct Brain W/O Iv Contrast(Rout) (10/23/17 ) Ct Cerv Spine W/O Contrast (10/23/17 ) Knee, Complete (4vws) (10/23/17 10:09) Hip, Uni(Ap&Lat) W Ap Pelvis (10/23/17 10:09) Influenzae A/B Antigen (10/23/17 10:09) Metoprolol Succinate Er (Toprol Xl) (10/23/17 10:45) Urinalysis - C+S If Indicated (10/23/17 11:50) Diet Heart Healthy (10/23/17 Lunch) Methocarbamol (Robaxin) (10/23/17 12:15) Urine Culture (10/23/17 11:40) Labs Laboratory Tests Test 10/23/17 10:15 10/23/17 11:40 White Blood Count 11.8 TH/MM3 Red Blood Count 5.26 MIL/MM3 Hemoglobin 15.3 GM/DL Hematocrit 45.6 % Mean Corpuscular Volume 86.7 FL Mean Corpuscular Hemoglobin 29.2 PG Mean Corpuscular Hemoglobin Concent 33.6 % Red Cell Distribution Width 14.8 % Platelet Count 193 TH/MM3 Mean Platelet Volume 9.6 FL Neutrophils (%) (Auto) 73.3 % Lymphocytes (%) (Auto) 12.4 % Monocytes (%) (Auto) 13.8 % Eosinophils (%) (Auto) 0.2 % Basophils (%) (Auto) 0.3 % Neutrophils # (Auto) 8.6 TH/MM3 Lymphocytes # (Auto) 1.5 TH/MM3 Monocytes # (Auto) 1.6 TH/MM3 Eosinophils # (Auto) 0.0 TH/MM3 Basophils # (Auto) 0.0 TH/MM3 CBC Comment DIFF FINAL Differential Comment Prothrombin Time 19.1 SEC Prothromb Time International Ratio 1.9 RATIO Activated Partial Thromboplast Time 28.8 SEC Blood Urea Nitrogen 24 MG/DL Creatinine 0.91 MG/DL Random Glucose 93 MG/DL Calcium Level 9.0 MG/DL Magnesium Level 2.2 MG/DL Sodium Level 133 MEQ/L Potassium Level 4.3 MEQ/L Chloride Level 100 MEQ/L Carbon Dioxide Level 28.0 MEQ/L Anion Gap 5 MEQ/L Estimat Glomerular Filtration Rate 59 ML/MIN Troponin I LESS THAN 0.02 NG/ML Urine Color YELLOW Urine Turbidity HAZY Urine pH 7.0 Urine Specific [place] 1.011 Urine Protein NEG mg/dL Urine Glucose (UA) NEG mg/dL Urine Ketones NEG mg/dL Urine Occult Blood NEG Urine Nitrite NEG Urine Bilirubin NEG Urine Urobilinogen LESS THAN 2.0 MG/DL Urine Leukocyte Esterase LARGE Urine RBC 1 /hpf Urine WBC 56 /hpf Urine Squamous Epithelial Cells 12 /hpf Urine Bacteria RARE /hpf Urine Mucus FEW /lpf Microscopic Urinalysis Comment CULTURE INDICATED MDM Supervised Visit with [facility]: Yes Narrative Course The history, exam, and medical decision-making in the associated midlevel provider note were completed with my assistance. I reviewed and agree with the findings presented. I attest that I had a [id number] encounter with the patient on the same day, and personally performed and documented my assessment and findings in the medical record. *My assessment and Findings: This is a 82-year-old female who presents to the emergency department with a history of atrial fibrillation having had several episodes of syncope including one involving close head injury this morning. She is on Coumadin. CT of the head was unremarkable. Labs are obtained which were reassuring. Her heart rate was found to be elevated. She was administered her home metoprolol but she continued to have a heart rate in the 120s to 130s. She was started on diltiazem and admitted to the CICU for further management. She was recently taken off of digoxin so her symptoms are likely due to poor rate control. Diagnosis Primary Impression: Syncope and collapse Additional Impression: Atrial fibrillation Qualified Codes: I48.91 - Unspecified atrial fibrillation Mackenzie Paul MD Oct 23, 2017 15:26
[2017-10-23] MEDS ORDERED: DILTIAZEM HCL 30 MG TAB PO ONE (15:45)
[2017-10-23] MEDS ORDERED: WARFARIN SOD 2.5 MG TAB PO SCH (16:00)
[2017-10-23] MEDS: SODIUM CHLOR 0.9% 1000 ML INJ 1,000 ML IV SCH (16:48)
--- NOTE | 2017-10-23 16:51 | RADRPT ---
EXAM DATE/TIME: 10/23/2017 16:04 [facility] COMPARISON: No previous studies available for comparison. INDICATIONS : Syncope. MEDICAL HISTORY : Gastroesophageal reflux disease. Hypertension. Hearing loss. Vertigo. Afib. Anticoagulant therapy. Arthritis. SURGICAL HISTORY : Tubal ligation. Hysterectomy. Bladder prolapse repair. Right leg vein stripping. Cardiac ablation. Cataract removal. ENCOUNTER: Initial ACUITY: 1 day PAIN SCORE: 0/10 LOCATION: Bilateral neck PEAK SYSTOLIC VELOCITIES (cm/sec): ICA/CCA RATIO: Right: 0.9 Left: 0.9 ICA: Right: 74 Left: 95 CCA: Right: 85 Left: 110 ECA: Right: 56 Left: 75 VERTEBRAL: Right: 49 antegrade Left: 65 antegrade Elevated flow velocities and ICA/CCA ratios have been found to correlate with increased degrees of vessel stenosis, calculated as percentage of diameter relative to a normal segment of distal ICA/CCA FINDINGS: RIGHT CAROTID: Mild calcified plaque at the carotid bulb. No significant stenosis is visualized. The waveforms are within normal limits. LEFT CAROTID: Mild calcified plaque at the carotid bulb. No significant stenosis is visualized. The waveforms are within normal limits. VERTEBRAL ARTERIES: Antegrade flow is seen in both vertebral arteries. MISCELLANEOUS: None. CONCLUSION: No evidence of hemodynamically significant carotid stenosis.. Rommel Bowser MD on October 23, 2017 at 16:47 Board Certified Radiologist. This report was verified electronically.
[2017-10-23] MEDS ORDERED: DILTIAZEM HCL 30 MG TAB PO SCH ×2 (18:00→23:00)
--- NOTE | 2017-10-23 20:51 | MB ---
cc: JEROME VILLASENOR MD DATE OF CONSULTATION 10/23/[address] Sabiha Borden PRIMARY CARE PHYSICIAN Dr. Juana Muñoz REASON FOR CONSULTATION Syncope and atrial fibrillation. HISTORY OF PRESENT ILLNESS This is an 82-year-old white female well-known to me with a history of permanent atrial fibrillation and sick sinus syndrome who was recently undergoing workup for dyspnea on exertion. The patient presented to the emergency room early today because of multiple episodes of syncope. She says she was having intermittent palpitations up until last night and has a recurrent urinary tract infection as well as an upper respiratory infection. She denies any fevers, chills or night sweats. She did take some NyQuil last evening before going to bed. She awoke around 3:30 in the morning with a headache, so she got up and walked to the kitchen to get some Tylenol. She was putting away the bottle and then felt lightheaded and fell to the floor. She said she was unconscious and then when she awoke, called for her daughter who she is living with. Her daughter came to see her and attempted to get her up off the floor two times and she had two additional brief syncopal episodes when she was attempting to stand her. She denies any loss of urine or bladder or bowel contents during this episode. There was no seizure activity. A EVAC was called. The patient was taken to the hospital. She was here, found to have some atrial fibrillation with a mildly rapid ventricular response and was treated with intravenous diltiazem. Her blood pressure and heart rate are well controlled at this time and she is lying in bed and asymptomatic. She had a thorough workup when she arrived here and no apparent injuries were found. The patient's has been undergoing workup for a dyspnea on exertion of uncertain etiology. I stopped her Digoxin about three weeks ago because of some mild bradycardia. I was concerned maybe she was having some chronotropic incompetence, but her symptoms have not improved since then. Recent Holter monitoring did not reveal any significant symptomatic bradycardia or pauses of more than three seconds. PAST MEDICAL HISTORY 1. Longstanding hyperlipidemia, 2. Anxiety/depression, 3. Gastroesophageal reflux disease 4. Bladder prolapse, 5. Recurrent UTIs, 6. Permanent atrial fibrillation, since 2009 7. Mild mitral regurgitation, 8. Longstanding hypertension. 9. Combined hyperlipidemia. 10. Palpitations. The patient denies any history of myocardial infarction, coronary artery disease, heart failure, stroke, diabetes, thyroid, liver or kidney disease. PAST SURGICAL HISTORY 1. Atrial fibrillation RF ablation, 06/2008 2. Hysterectomy, 3. Bladder prolapse repair, 4. Esophageal dilatation, 5. Tubal ligation, MEDICATIONS 1. Warfarin 2.5 mg on Friday, Friday, Friday, and Friday with 5 mg other days 2. Lovastatin 10 mg daily. 3. Alprazolam 0.25 mg at bedtime p.r.n. 4. Duloxetine 30 mg daily, but she said she stopped taking this a day or two ago. 5. CoQ 10 200 mg daily. 6. Spironolactone 25 mg daily. 7. Hydralazine 25 mg p.o. b.i.d. 8. Metoprolol succinate 100 mg daily. 9. She is currently receiving intravenous diltiazem at 10 mg per hour. She received a 10 mg intravenous bolus earlier today in the emergency room. ALLERGIES AND INTOLERANCES CODEINE DOXYCYCLINE LACTOSE MEPERIDINE MINOCYCLINE PENICILLIN G TIGECYCLINE PROMETHAZINE SOCIAL HISTORY The patient denies any tobacco use or any significant alcohol intake, consumes occasional glass of wine. Denies any illicit drug use. Currently living with her daughter. FAMILY HISTORY Mother had multiple CVAs. REVIEW OF SYSTEMS Denies lower extremity edema or claudication. She says she has lost about 10 pounds over the past month or so due to change in her eating habits. She denies any fevers, chills, night sweats, nausea, vomiting, diarrhea. She has had no previous syncopal episodes to this. Denies any bleeding or clotting disorders. Except for that mentioned in HPI, her complete 12-point review of systems is otherwise negative. PHYSICAL EXAMINATION GENERAL: This is an elderly well-developed white female lying in bed in no distress. VITAL SIGNS: Blood pressure 127/59 mmHg, heart rate 93 and irregular, respiratory rate 16, temperature 98.1, oxygen saturation 98% on room air. HEENT: Normocephalic and atraumatic. Pupils equal, round and react to light. Sclerae anicteric. Extraocular moments intact. NECK: Supple. There is no adenopathy. No jugular venous distension at 90 degrees. Carotid upstrokes normal. No bruits. Thyroid exam is normal. LUNGS: Clear. HEART: PMI is not displaced. S1-S2 normal. No murmurs, gallops, clicks or rubs. ABDOMEN: Bowel sounds present, soft, nontender. No hepatosplenomegaly, masses or bruits. EXTREMITIES: No cyanosis, clubbing or edema. Perfusion is adequate in the upper and lower extremities. No femoral bruits. NEUROLOGIC: Exam is nonfocal. CARDIOLOGY STUDIES EKG performed at 10:09 this morning shows an atrial fibrillation with a ventricular response of 112 beats per minute and low voltage frontal leads, abnormal EKG. An echocardiogram report performed in my office September 25, 2017 showed rhythm of atrial fibrillation, mild asymmetric left ventricular septal hypertrophy. No left ventricular outflow tract gradient, preserved left ventricular systolic function. Ejection fraction 61%. Dilated right ventricle with preserved function. Mild bi-atrial enlargement. Aortic sclerosis with mild +1 aortic insufficiency. Mitral annular calcification with mild +1 to +2 mitral regurgitation. Mild +1 to +2 tricuspid regurgitation. Right ventricular systolic pressure of 38 mmHg. Also a pharmacologic stress - MPI performed in my office September 10, 2017 was a normal study. Left ventricular ejection fraction 60%. No ischemia or infarct identified on that study. IMAGING STUDIES Chest x-ray - No acute cardiopulmonary disease. Head CT - No acute intracranial findings. Cervical spine - No fractures Knee, hip and pelvis x-ray is negative for fracture. LABORATORY DATA CBC - white count 11.8, hemoglobin 15.3, platelet count 193,000, INR 1.9. Sodium 133, potassium 4.3, chloride 100, CO2 28, BUN 24, creatinine 0.91, glucose 93, magnesium 2.2. Troponin I less than 0.02. Urinalysis - yellow hazy, pH 7.0. There is a large amount of leukocyte esterase and 56 WBCs. Culture is pending. IMPRESSION 1. Multiple brief syncopal episodes early this morning that are suspicious for orthostatic hypotension or vasovagal etiology. 2. Permanent atrial fibrillation with mild rapid ventricular response on admission. 3. Hypertensive heart disease, currently well-controlled. 4. Mild mitral regurgitation. 5. Combined hyperlipidemia currently on statin therapy. 6. Palpitations and chronic dyspnea on exertion of uncertain etiology. 7. Urinary tract infection. 8. Upper respiratory infection. RECOMMENDATIONS Patient warned against cold remedies with decongestants. She should avoid those. I have started the patient on some intravenous normal saline one liter over 10 hours for some additional hydration. Orthostatic blood pressures will be checked. I am discontinuing her hydralazine and spironolactone at this time, since these may have aggravated this episode. She has been losing weight and perhaps she does not need as aggressive blood pressure control. I will continue her metoprolol succinate 100 mg daily and start her on some oral Cardizem 30 mg p.o. q.6 h and discontinue the intravenous Cardizem that was started earlier in the emergency room that is currently running. Discussed the plans in detail with the patient. She will be observed on telemetry overnight and, if she is stable, will hopefully be discharged to home tomorrow morning. MD COLT Hayes/ /4:27 PM /8:01 PM SÁNCHEZ
[2017-10-23] MEDS ORDERED: hydrALAZINE HCL 25 MG TAB PO SCH (21:00)
[2017-10-23] MEDS: SODIUM CHLORIDE 0.9% FLUSH 10 ML FLUSH IV FLUSH SCH (21:00)
[2017-10-23] MEDS ORDERED: METOPROLOL SUCCINATE 50 MG EXTENDED RELEASE TAB PO SCH (21:00)
--- NOTE | 2017-10-23 22:49 | EKG ---
Date Performed: 10/23/2017 Time Performed: 09:54:30 PTAGE: 82 years EKG: ATRIAL FIBRILLATION WITH RAPID VENTRICULAR RESPONSE LOW QRS VOLTAGE IN EXTREMITY LEADS ABNO RMAL QRS-T ANGLE ABNORMAL ECG PREVIOUS TRACING : 10/23/2017 09.53 Compared to prior tracing, rate has increased DOCTOR: Viraj Gonsalez Interpretating Date/Time 10/23/2017 22:47:57
[2017-10-23] MEDS: DOCUSATE SODIUM 50 MG/SENNA 8.6 MG TAB PO SCH (22:58)
[2017-10-24] VITALS (22 sets, daily range): BP systolic 113–156; BP diastolic 59–88; PULSE 74–115; RESP 18–20; TEMP 97.9–98.4; O2SAT 95–99
[2017-10-24] MEDS: SODIUM CHLOR 0.9% 1000 ML INJ 1,000 ML IV SCH (02:56)
[2017-10-24] MEDS ORDERED: DILTIAZEM-CD 120 MG CAP ER PO ONE (05:15)
[2017-10-24 06:13] LABS: INTERNATIONAL NORMALIZED RATIO 1.7 RATIO; PROTHROMBIN TIME - PATIENT 17.4 SEC (9.8-11.6)
--- NOTE | 2017-10-24 06:16 | PD.CARD.PN ---
Subjective Subjective Remarks Feeling well this AM. No lightheadedness or recurrent syncopy. Orthostatic BP' s OK. Denies CP or SOB. Objective Medications Current Medications Medications (Trade) Dose Ordered Sig/Teresa Route Start Time Stop Time Status Last Admin (NS Flush) 2 ml UNSCH PRN IV FLUSH 10/23/17 13:00 (NS Flush) 2 ml BID IV FLUSH 10/23/17 21:00 (Zofran Inj) 4 mg Q6H PRN IVP 10/23/17 13:00 (Narcan Inj) 0.4 mg UNSCH PRN IV PUSH 10/23/17 13:00 (Ibeth-Colace) 1 tab BID PO 10/23/17 21:00 10/23/17 22:58 (Milk Of Magnesia Liq) 30 ml Q12H PRN PO 10/23/17 13:00 (Senokot) 17.2 mg Q12H PRN PO 10/23/17 13:00 (Dulcolax Supp) 10 mg DAILY PRN RECTAL 10/23/17 13:00 (Lactulose Liq) 30 ml DAILY PRN PO 10/23/17 13:00 (Cymbalta Dr) 30 mg DAILY PO 10/24/17 09:00 (Pravachol) 10 mg DAILY PO 10/24/17 09:00 Pharmacy Profile Note 0 ml @ 0 mls/hr UNSCH OTHER 10/23/17 15:00 (Coumadin) 5 mg MoFr PO 10/24/17 16:00 (Coumadin) 2.5 mg TuWeThSa PO 10/23/17 16:00 10/23/17 16:47 (Coumadin) 2.5 mg Wayne PO 10/26/17 16:00 Ceftriaxone Sodium 1000 mg/ Sodium Chloride 100 ml @ 200 mls/hr Q24H IV 10/24/17 13:00 (Toprol Xl) 100 mg DAILY PO 10/24/17 09:00 (Cardizem Cd) 120 mg DAILY PO 10/25/17 09:00 Vital Signs / I&O Vital Signs Date Time Temp Pulse Resp B/P (MAP) Pulse Ox O2 Delivery O2 Flow Rate FiO2 10/24/17 04:30 98.0 82 20 114/60 (78) 96 10/24/17 00:00 98.4 100 20 117/59 (78) 95 10/23/17 21:00 98.5 101 20 119/60 (79) 95 10/23/17 20:05 10/23/17 18:39 90 19 122/64 (83) 97 Room Air 10/23/17 17:35 107 143/69 (93) 118 129/65 (86) 136/61 (86) 10/23/17 15:33 85 10/23/17 14:42 93 16 127/59 (81) 98 Room Air 10/23/17 14:20 17 99 10/23/17 13:53 120 128/81 10/23/17 13:30 130 17 134/93 (107) 98 Room Air 10/23/17 12:00 110 18 157/80 (105) 99 Room Air 10/23/17 09:35 98.1 101 16 118/77 (91) 98 I/O 10/23/17 10/23/17 10/23/17 10/24/17 10/24/17 10/24/17 07:00 15:00 23:00 07:00 15:00 23:00 Intake Total 100 ml 589 ml Balance 100 ml 589 ml Intake IV Total 100 ml 589 ml Physical Exam VSS, afebrile No JVD Lungs CTA Heart: Irreg, S1, S2, no murmur, gal, rubs. Ext: No C/C/E Neuro: Non-focal. Laboratory Laboratory Tests Test 10/23/17 10:15 10/23/17 11:40 10/24/17 04:30 White Blood Count 11.8 TH/MM3 Red Blood Count 5.26 MIL/MM3 Hemoglobin 15.3 GM/DL Hematocrit 45.6 % Mean Corpuscular Volume 86.7 FL Mean Corpuscular Hemoglobin 29.2 PG Mean Corpuscular Hemoglobin Concent 33.6 % Red Cell Distribution Width 14.8 % Platelet Count 193 TH/MM3 Mean Platelet Volume 9.6 FL Neutrophils (%) (Auto) 73.3 % Lymphocytes (%) (Auto) 12.4 % Monocytes (%) (Auto) 13.8 % Eosinophils (%) (Auto) 0.2 % Basophils (%) (Auto) 0.3 % Neutrophils # (Auto) 8.6 TH/MM3 Lymphocytes # (Auto) 1.5 TH/MM3 Monocytes # (Auto) 1.6 TH/MM3 Eosinophils # (Auto) 0.0 TH/MM3 Basophils # (Auto) 0.0 TH/MM3 CBC Comment DIFF FINAL Differential Comment Prothrombin Time 19.1 SEC Prothromb Time International Ratio 1.9 RATIO Activated Partial Thromboplast Time 28.8 SEC Blood Urea Nitrogen 24 MG/DL Creatinine 0.91 MG/DL Random Glucose 93 MG/DL Calcium Level 9.0 MG/DL Magnesium Level 2.2 MG/DL Sodium Level 133 MEQ/L Potassium Level 4.3 MEQ/L Chloride Level 100 MEQ/L Carbon Dioxide Level 28.0 MEQ/L Anion Gap 5 MEQ/L Estimat Glomerular Filtration Rate 59 ML/MIN Troponin I LESS THAN 0.02 NG/ML Urine Color YELLOW Urine Turbidity HAZY Urine pH 7.0 Urine Specific [place] 1.011 Urine Protein NEG mg/dL Urine Glucose (UA) NEG mg/dL Urine Ketones NEG mg/dL Urine Occult Blood NEG Urine Nitrite NEG Urine Bilirubin NEG Urine Urobilinogen LESS THAN 2.0 MG/DL Urine Leukocyte Esterase LARGE Urine RBC 1 /hpf Urine WBC 56 /hpf Urine Squamous Epithelial Cells 12 /hpf Urine Bacteria RARE /hpf Urine Mucus FEW /lpf Microscopic Urinalysis Comment CULTURE INDICATED Imaging Last 24 hours Impressions Knee X-Ray 10/23/17 1009 Signed Impressions: Service Date/Time: September 10:37 - CONCLUSION: 1. No evidence of fracture. 2. Moderate severity medial compartment osteoarthritic findings. Rommel Bowser MD Hip and Pelvis X-Ray 10/23/17 1009 Signed Impressions: Service Date/Time: September 10:34 - CONCLUSION: No evidence of fracture. Rommel Bowser MD Chest X-Ray 10/23/17 1009 Signed Impressions: Service Date/Time: September 10:49 - CONCLUSION: No acute cardiopulmonary disease identified. Rommel Bowser MD Assessment and Plan Problem List: (1) Syncope and collapse ICD Codes: R55 - Syncope and collapse Status: Acute Plan: Likely orthostatic hypotension vs vasovagal etiology. D/C hydralazine and spironolactone. (2) Permanent atrial fibrillation ICD Codes: I48.2 - Chronic atrial fibrillation Plan: Ventricular rate control improving. Adjust meds, (3) Hypertension ICD Codes: I10 - Hypertension Status: Acute (4) Hyperlipidemia ICD Codes: E78.5 - Hyperlipidemia Status: Acute Assessment and Plan D/C IVF, and will leave off hydralazine and spironolactone. Change Cardizem to 180 ER preparation daily. Continue Toprol XL 100 mg daily. Continue Rx UTI per Dr. Pruett. Ambulate and if remains asymptomatic OK to discharge home today. I will arrange follw up in 102 weeks in my office. Code Status Full Discussed Condition With Discussed plans with patient and staffing consultant. Marcial Vernon MD Oct 24, 2017 06:16
[2017-10-24 06:30] LABS: BICARBONATE 25.1 MEQ/L (21.0-32.0); CALCIUM 8.3 MG/DL (8.5-10.1); CREATININE 0.61 MG/DL (0.50-1.00)
[2017-10-24] MEDS ORDERED: DILTIAZEM HCL 30 MG TAB PO ONE (06:30)
[2017-10-24] MEDS ORDERED: SPIRONOLACTONE 25 MG TAB PO SCH (09:00)
[2017-10-24] MEDS ORDERED: DULoxetine HCl DR 30 MG CAP PO SCH (09:00)
[2017-10-24] MEDS ORDERED: METOPROLOL SUCCINATE 50 MG EXTENDED RELEASE TAB PO SCH (09:00)
[2017-10-24] MEDS: SODIUM CHLORIDE 0.9% FLUSH 10 ML FLUSH IV FLUSH SCH (09:14)
[2017-10-24] MEDS: DOCUSATE SODIUM 50 MG/SENNA 8.6 MG TAB PO SCH (09:14)
[2017-10-24] MEDS ORDERED: cefTRIAXone INJ 1,000 MG in SODIUM CHLORIDE 0.9% INJ 100 ML IV SCH (13:00)
[2017-10-24] MEDS ORDERED: DILT120C50 PO (13:45)
[2017-10-24] MEDS ORDERED: CEFU1TAB18 PO (13:45)
[2017-10-24] MEDS ORDERED: METO1TAB9 PO (13:45)
--- NOTE | 2017-10-24 13:53 | HHI.DCPOC ---
Discharge Care Plan Diagnosis: (1) Syncope and collapse (2) Atrial fibrillation Goals to Promote Your Health * To prevent worsening of your condition and complications * To maintain your health at the optimal level Directions to Meet Your Goals Take your medications as prescribed Follow your dietary instruction Follow activity as directed Keep your appointments as scheduled Take your immunizations and boosters as scheduled If your symptoms worsen call your PCP, if no PCP go to Urgent Care Center or Emergency Room Smoking is Dangerous to Your Health. Avoid second hand smoke Call the 24-hour hour crisis hotline for domestic abuse at Ramona Ward MD Oct 24, 2017 13:53
--- NOTE | 2017-10-24 13:54 | HHI.DS ---
Discharge Summary Admission Date Oct 23, 2017 at 12:51 Admitting Diagnosis SYNCOPE, ATRIAL FIBRILLATION Brief History - From Admission Patient is a pleasant 82-year-old female with past medical history of atrial fibrillation, hyperlipidemia, anxiety/depression, GERD, bladder prolapse presented to the emergency room with complaint of syncopal episode. Patient states that last night she took NyQuil for her runny nose and for insomnia. Around 3;30am she had a headache, she got up and decided to go to the kitchen to get 2 Tylenols. As she was putting the bottle away she felt like she was going down and found herself on the floor. She doesn't remember hitting her head however she remembers hitting her left shoulder, neck area, her right knee and her right hip. Daughter heard the noise and came to see her and found her on the floor. Per patient, daughter told her that she passed out twice while she was with her. She does admits to palpitations for the past 2 weeks. 2 weeks ago, she saw her debone processing supervisor, Dr. Vernon, he told her to stop the digoxin. She states also that her primary care doctor adjusted her Coumadin dose as well and wonders if that has anything to do w the syncopal episode. During her syncopal episode she felt like "water". She denied any lightheadedness or dizziness. She denied any chest pain whatsoever or any shortness of breath. She admits to a dry cough once in a while associated w her runny nose however no fevers or chills. She denies any abdominal pain. She tells me that she is scheduled for a bladder prolapse pair sometime on November 12. Pt denies any runny nose or sore throat during my interview. CBC/BMP: 10/23/17 1015 10/24/17 0430 Significant Findings Laboratory Tests Test 10/23/17 10:15 10/23/17 11:40 10/24/17 04:30 White Blood Count 11.8 TH/MM3 (4.0-11.0) Neutrophils (%) (Auto) 73.3 % (16.0-70.0) Monocytes (%) (Auto) 13.8 % (0.0-8.0) Neutrophils # (Auto) 8.6 TH/MM3 (1.8-7.7) Monocytes # (Auto) 1.6 TH/MM3 (0-0.9) Prothrombin Time 19.1 SEC (9.8-11.6) 17.4 SEC (9.8-11.6) Blood Urea Nitrogen 24 MG/DL (7-18) Sodium Level 133 MEQ/L (136-145) Estimat Glomerular Filtration Rate 59 ML/MIN (>89) Troponin I LESS THAN 0.02 NG/ML Urine Turbidity HAZY (CLEAR) Urine Leukocyte Esterase LARGE (NEG) Urine WBC 56 /hpf (0-5) Urine Bacteria RARE /hpf (NONE) Urine Mucus FEW /lpf (OCC) Calcium Level 8.3 MG/DL (8.5-10.1) Pt Condition on Discharge: Good Discharge Disposition: Disch w/ Home Health Serv Discharge Instructions DIET: Follow Instructions for: Heart Healthy Diet Activities you can perform: Regular-No Restrictions Ramona Ward MD Oct 24, 2017 13:54
--- NOTE | 2017-10-24 13:56 | HHI.FF ---
Face to Face Verification Diagnosis: (1) Syncope and collapse (2) Atrial fibrillation Physical Therapy Order: Evaluate and Treat, Improve ambulation, Strength and gait training Home Health Nursing Order: Signs/symptoms of disease process Medication education-adverse effect I have seen patient Deyanira Sheehan on 10/24/17. My clinical findings support the need for the requested home health care services because: High risk of falls I certify that my clinical findings support that this patient is homebound because: Poor cardiac reserve Ramona Ward MD Oct 24, 2017 13:55
[2017-10-24] MEDS ORDERED: CEFUROXIME AXETIL 500 MG TAB PO ONE (15:00)
[2017-10-24] MEDS ORDERED: WARFARIN SOD 5 MG TAB PO SCH (16:00)
--- NOTE | 2017-10-24 19:08 | MG ---
cc: AMINTA WILLOUGHBY M.D. Lab No: Date: 10/24/2017 Age: 82 Sex: F Race: REQUESTING PHYSICIAN: Dr. Lin. An EEG was obtained on this 82-year-old patient being evaluated for syncopal episodes. DESCRIPTION OF RECORD: The patient is described as awake and asleep. The EEG shows a lot of 8-10 per second alpha rhythms in the central and posterior head regions. There are beta rhythms centrally and frontally. There is some intermixed theta activity. At times the theta rhythms appear slightly more prominent on the left than right but this is probably normal for the patient's age. There are some sharp contoured waves but no sharp spike type of discharges. There is awake and drowsiness in this recording. Photic stimulation was unremarkable. Hyperventilation was not performed. INTERPRETATION: Normal awake and drowsy EEG for the patient's age. MD REAL Sierra/YVETTE /4:11 PM /6:59 PM
[2017-10-24] MEDS ORDERED: PRAVASTATIN SOD 10 MG TAB PO SCH (21:00)
[2017-10-25] MEDS ORDERED: DILTIAZEM-CD 120 MG CAP ER PO SCH ×2 (09:00)
[2017-10-25] MEDS ORDERED: WARFARIN SOD 2.5 MG TAB PO SCH (16:00)
[2017-10-26] MEDS ORDERED: WARFARIN SOD 2.5 MG TAB PO SCH (16:00)
== END 2017-10-24 17:15 | disposition home health service (06) | DRG 312 ==
LOC: NEPD 09:34 → NEDA 12:51 → HCPC 20:25
PROVIDERS: ADMIT Family Medicine; ATTEND Family Medicine
DX: I95.1 Orthostatic hypotension (principal); R06.09 Other forms of dyspnea; I11.9 Hypertensive heart disease without heart failure; E87.1 Hypo-osmolality and hyponatremia; I49.5 Sick sinus syndrome; N39.0 Urinary tract infection, site not specified; I48.2 Chronic atrial fibrillation; E78.2 Mixed hyperlipidemia; F32.9 Major depressive disorder, single episode, unspecified; K21.9 Gastro-esophageal reflux disease without esophagitis; J06.9 Acute upper respiratory infection, unspecified; G47.00 Insomnia, unspecified; I08.3 Combined rheumatic disorders of mitral, aortic and tricuspid valves; N81.10 Cystocele, unspecified; M19.90 Unspecified osteoarthritis, unspecified site; F41.9 Anxiety disorder, unspecified; W18.39XA Other fall on same level, initial encounter; Z79.01 Long term (current) use of anticoagulants; Z88.0 Allergy status to penicillin; Z88.1 Allergy status to other antibiotic agents; Z88.5 Allergy status to narcotic agent
CPT/HCPCS: 70450; 71045; 72125; 73502; 73564; 80048; 81001; 83735; 84484; 85025; 85610; 85730; 87086; 87804; 93005; 93880; 95819; J0696; J7030

== ENCOUNTER → 2017-12-31 | Outpatient (CLI) | payer MEDICARE, OTHER ==
[~2017-12-31] MED LIST changes: +CEFU1TAB18 PO; -CIPR250T52 PO; -CYCL5TAB PO; -DIGO0.25 PO; +DILT120C50 PO; -HYDR-3801 PO; -LIDO1ADH4 TOPICAL; -PANT40TA3 PO; -SPIR25TA PO; -TRAM50TA PO
[2017-12-31 12:20] LABS: HEMATOCRIT 40.9 % (35.0-46.0); HEMOGLOBIN 13.2 GM/DL (11.6-15.3); MEAN CELL VOLUME 86.2 FL (80.0-100.0); MEAN CORPUSCULAR HEMOGLOBIN 27.9 PG (27.0-34.0); MEAN CORPUSCULAR HGB CONC 32.3 % (32.0-36.0); MEAN PLATELET VOLUME 9.9 FL (7.0-11.0); PLATELET COUNT 201 TH/MM3 (150-450); RED BLOOD COUNT 4.75 MIL/MM3 (4.00-5.30); WHITE BLOOD COUNT 9.6 TH/MM3 (4.0-11.0)
== END ==
LOC: CLAB 11:35
PROVIDERS: ATTEND Internal Medicine Interventional Cardiology
DX: R06.02 Shortness of breath (principal); I50.32 Chronic diastolic (congestive) heart failure; I34.0 Nonrheumatic mitral (valve) insufficiency; I36.1 Nonrheumatic tricuspid (valve) insufficiency; I35.1 Nonrheumatic aortic (valve) insufficiency; I48.2 Chronic atrial fibrillation; Z79.899 Other long term (current) drug therapy
CPT/HCPCS: 36415; 83880; 85027

== ENCOUNTER → 2018-01-12 | Outpatient (CLI) | payer MEDICARE, OTHER ==
[2018-01-12 11:24] LABS: BICARBONATE 32.4 MEQ/L (21.0-32.0); CALCIUM 9.2 MG/DL (8.5-10.1); CREATININE 0.91 MG/DL (0.50-1.00)
== END ==
LOC: CLAB 10:12
PROVIDERS: ATTEND Internal Medicine Interventional Cardiology
DX: I50.32 Chronic diastolic (congestive) heart failure (principal); Z79.899 Other long term (current) drug therapy
CPT/HCPCS: 36415; 80048

== ENCOUNTER 2018-04-08 08:55 | Observation (INO) ==
[2018-04-08] MEDS ORDERED: Metoprolol Tartrate 25 MG Tablet PO SCH (10:30)
[2018-04-08] MEDS ORDERED: Chlorhexidine Gluconate 2% 1 Pack (2 Cloths) TOPICAL SCH (10:30)
[2018-04-08 10:58] LABS: Activated Partial Thrombo Time 24.3 sec (24.3-30.1); INR 1.3 Ratio
[2018-04-08 11:00] LABS: Prothrombin Time 12.9 sec (9.8-11.6)
[2018-04-08] MEDS ORDERED: Sodium Chlor 0.9% Inj 500 ML IV.SIG SCH (11:00)
[2018-04-08] MEDS ORDERED: Lidocaine PF 1% Inj 5 ML Syringe INFILTRATN ONE (11:10)
[2018-04-08] MEDS ORDERED: Estrogens Congugated Vag Cream w/app 30 GM Tube VAGINAL ONE (13:51)
[2018-04-08] MEDS ORDERED: fentaNYL Citrate Inj 100 MCG/2 ML Ampul ONE (15:14)
[2018-04-08] MEDS ORDERED: Loratadine 10 MG Tablet PO PRN (15:15)
--- NOTE | 2018-04-08 15:34 | MP ---
cc: Anne-Marie Harrison MD DATE OF OPERATION: 04/08/2018 PREOPERATIVE DIAGNOSIS: Total vaginal prolapse. POSTOPERATIVE DIAGNOSIS: Total vaginal prolapse. PROCEDURE PERFORMED: LeForte colpocleisis. ANESTHESIA: General. SURGEON: Anne-Marie Harrison MD FINDINGS: On examination under anesthesia, she had total vaginal prolapse. The bimanual exam was negative for any masses or concerning findings. COMPLICATIONS: None. COUNTS: Correct. ESTIMATED BLOOD LOSS: 50 mL. FLUIDS: Crystalloids. DISPOSITION: The patient tolerated the procedure well and went to the recovery room in good condition. PROCEDURE IN DETAIL: The patient was taken to the operating room, identified by name band and verbally, given a general anesthetic, prepped and draped in the usual sterile manner for vaginal surgery. Timeout was taken and examination under anesthesia was carried out with the above findings. In and out catheter was performed. The vagina had totally prolapsed. We took a posterior leaf of the posterior vaginal mucosa and likewise we took a leaf out anteriorly. We then plicated the anterior to the posterior denuded surfaces and created a small tunnel and the vagina retracted nicely. We continued this anterior to posterior, suturing until the vagina totally was closed. The procedure went well. I was happy with the results. There was a 2 cm vaginal pouch at the end, her bleeding was minimal. She was taken to the recovery room in good condition. Anne-Marie Harrison MD RJV/LOREE , 03:08 PM , 03:32 PM
[2018-04-08] MEDS ORDERED: Acetaminophen 325 MG Tablet PO PRN (20:29)
[2018-04-08] MEDS ORDERED: ALPRAZolam 0.25 MG Tablet PO SCH (21:00)
[2018-04-08] MEDS ORDERED: LOVASTATIN PO SCH (21:00)
[2018-04-08] MEDS: Docusate Sodium 100 MG Capsule PO SCH (21:24)
[2018-04-09] MEDS ORDERED: Levothyroxine 50 MCG Tablet PO SCH (06:00)
[2018-04-09] MEDS: Docusate Sodium 100 MG Capsule PO SCH (08:56)
[2018-04-09] MEDS ORDERED: Multivitamin/Minerals Therapeutic Tablet PO SCH (09:00)
[2018-04-09] MEDS ORDERED: Furosemide 20 MG Tablet PO SCH (09:00)
[2018-04-09] MEDS ORDERED: dilTIAZem CD 180 MG Capsule PO SCH (09:00)
--- NOTE | 2018-04-09 10:46 | P.PNOB ---
Assessment and Plan - Postoperative Procedures Operation Date: 04/08/18 13:44 Actual Procedures Side Surgeon p SANA PROCEDURE Vinny Harrison MD Postoperative day: 1 Postoperative status: doing well Postoperative plan: routine post-op care - Time Spent With Patient Total time spent is greater than 50% in coordination of care (as documented) at patient's floor/unit and/or counseling patient: less than 15 minutes Subjective Interval history: post op day 1 Subjective: patient has no complaints, patient is tolerating oral intake Physical Exam Vital signs: Temp Pulse Resp BP Pulse Ox 98.4 F 118 H 18 118/91 H 95 04/09/18 07:10 04/09/18 07:10 04/09/18 07:10 04/09/18 07:10 04/09/18 07:10 - Constitutional no acute distress - Routine Respiratory Exam Present: CTA bilaterally - Routine Cardiovascular Exam Present: irregular rhythm - Routine Abdominal Exam Present: soft, normoactive bowel sounds - Detailed Neurological Exam: Coma Scale Verbal Response: Oriented - Urinary Catheter Management Indwelling Urethral Catheter Cath placed during this visit: yes Urethral indwelling: No Insertion date: 04/08/18 Insertion time: 15:40 Results - Labs Labs: Laboratory Results - last 24 hr 04/03/18 04/08/18 04/08/18 12:40 10:30 10:30 PT 12.9 H INR 1.3 APTT 24.3 Ur Collection Type Cancelled Urine Color Cancelled Urine Clarity Cancelled Urine pH Cancelled Ur Specific [place] Cancelled Urine Protein Cancelled Urine Glucose (UA) Cancelled Urine Ketones Cancelled Urine Occult Blood Cancelled Urine Nitrate Cancelled Urine Bilirubin Cancelled Urine Ictotest Cancelled Urine Urobilinogen Cancelled Ur Leukocyte Esterase Cancelled Urine RBC Cancelled Urine WBC Cancelled Urine WBC Clumps Cancelled Ur Squamous Epith Cells Cancelled Ur Transition Epith Cell Cancelled Ur Renal Epithelial Cell Cancelled Calcium Carbonate Cryst Cancelled Calcium Oxalate Crystal Cancelled Leucine Crystals Cancelled Cystine Crystals Cancelled Uric Acid Crystals Cancelled Triple Phos Crystals Cancelled Cholesterol Crystals Cancelled Tyrosine Crystals Cancelled Amorphous Sediment Cancelled Urine Bacteria Cancelled Hyaline Casts Cancelled Granular Casts Cancelled Fine Granular Casts Cancelled Coarse Granular Casts Cancelled Waxy Casts Cancelled RBC Casts Cancelled WBC Casts Cancelled Urine Mucus Cancelled Urine Trichomonas Cancelled Urine Yeast Cancelled Ur Yeast w Hyphae Cancelled Urine Sperm Cancelled Ur Oval Fat Bodies Cancelled Micro UA Comment Cancelled Urine Culture Comments Cancelled Urine Collection Time Cancelled Urine Comment Cancelled Blood Type A Negative Antibody Screen Negative
== END 2018-04-09 11:11 | disposition home or self-care (01) ==
LOC: HSDI 08:55 → H1EA 08:55 → HOR 08:55 → H1EA 16:23
PROVIDERS: ADMIT Obstetrics & Gynecology; ATTEND Obstetrics & Gynecology